=== PATIENT | female | born 1935 | race Caucasian/White ===

== ENCOUNTER → 2018-04-09 | Outpatient (CLI) | payer MEDICARE, OTHER ==
[2016-01-10 21:04] VITALS: BP 202/99
[~2018-04-09] MED LIST: CHOL100013 PO; IOHEXOL 240 MG/ML 50ML VIAL. PO ONE; IOHEXOL 300 MG/ML 75 ML VIAL. IV ONE; MULT1TAB52 PO; NIAC50TA3 PO; ZINC30CA PO
[2018-04-09 15:33] LABS: BASO # 0.1 x10^3/uL (0.0-0.2); BASO % 1 % (0-3); EOS % 0 % (0-3); LYMPH # 0.9 x10^3/uL (1.0-4.8); LYMPH % 6 % (24-48); MEAN CORPUSCULAR HEMOGLOBIN 30 pg (25-35); MEAN CORPUSCULAR HGB CONC 33 g/dL (31-37); MEAN CORPUSCULAR VOLUME 91 fL (79-100); MONO % 13 % (0-9); NEUT % 80 % (31-73); PLATELET COUNT 226 x10^3/uL (140-400); RED BLOOD COUNT 3.64 x10^6/uL (3.50-5.40); RED CELL DISTRIBUTION WIDTH 20.4 % (11.5-14.5)
[2018-04-09 15:56] LABS: ALBUMIN 3.5 g/dL (3.4-5.0); ALBUMIN/GLOBULIN RATIO 0.9 (1.0-1.7); CALCIUM 9.4 mg/dL (8.5-10.1); POTASSIUM 3.7 mmol/L (3.5-5.1); TOTAL BILIRUBIN 0.6 mg/dL (0.2-1.0); TOTAL PROTEIN 7.5 g/dL (6.4-8.2)
--- NOTE | 2018-04-09 16:44 | RAD ---
Examination: CT angiography chest HISTORY: History of dyspnea, breast mass COMPARISON: None available TECHNIQUE: Axial CT and radiographic images of chest were performed with IV contrast. Coronal and sagittal 3-D MIP reformats are performed Exposure: One or more of the following individualized dose reduction techniques were utilized for this examination: 1. Automated exposure control 2. Adjustment of the mA and/or kV according to patient size 3. Use of iterative reconstruction technique FINDINGS: The central airways are patent. Moderate cardiomegaly. Coronary artery calcifications identified. There is no evidence of filling defect identified in the main pulmonary arterial trunk and right and left main pulmonary arteries and the visualized lobar, segmental branches of the pulmonary arteries. There is a round 5 mm nodule identified in the right middle lobe of the lung. There is a pleural-based nodule identified in the left upper lobe of the lung laterally measuring 7.5 mm. No evidence of pleural effusion or pneumothorax. Few prominent left axillary lymph nodes identified with the largest measuring 1.7 cm. There is a 1.7 cm nodule identified in the right adrenal gland region measuring 6 Hounsfield units. The visualized liver, spleen, left adrenal grossly appears unremarkable. There is a large mass identified in the left breast region measuring 4.8 x 4.3 cm. There are multiple enlarged lymph nodes identified in the retrocrural, periaortic lymph nodes about the descending thoracic aorta and in the retroperitoneum. Moderate degenerative changes thoracic spine. IMPRESSION: 1. No evidence of pulmonary embolism. 2. Large mass identified in the left breast region. Malignancy is not excluded. Multiple enlarged left axillary, retrocrural, periaortic and retroperitoneal lymph nodes identified, suspicious for metastasis. 3. Small hypodense nodule identified in the right adrenal gland is difficult to characterize. 4. Small 5 mm nodule identified in the right middle lobe of the lung and 7.5 mm nodule identified in the left upper lobe of the lung abutting the pleura. Follow-up per Fleischner Society guidelines. Follow-up CT in 3-6 months. Electronically signed by: Sukh Thakkar MD (04/09/2018 4:40 PM) [id number]
--- NOTE | 2018-04-09 16:55 | RAD ---
CT ABD PELV W/ORAL IV CONTRAST Indication: ABDOMINAL PAIN, PALPABLE ABDOMINAL MASS IN SUPRAPUBIC AREA, BREAST MASS, ORAL AND 60MLS OMNI 300 IV CONTRAST Exposure: One or more of the following individualized dose reduction techniques were utilized for this examination: 1. Automated exposure control 2. Adjustment of the mA and/or kV according to patient size 3. Use of iterative reconstruction technique. Comparison: None are available. Contrast: Intravenous contrast was given. Oral contrast was given. FINDINGS: Lower thorax: Noncalcified nodule right lung base measures 7 mm. Coronary artery calcifications. Liver: Unremarkable Spleen: Unremarkable Pancreas: Pancreatic tail appears small. No acute peripancreatic inflammatory change. Adrenals: Small right adrenal gland mass measures 15 mm, and 26 Hounsfield units. Kidneys: Hypodense lesion posterior right kidney measures 8 mm and 10 Hounsfield units, likely a small cyst. Gallbladder: No calcified stone Lymph nodes: Enlarged para-aortic lymph nodes in the lower chest. Moderate to severe soft tissue nodule in the left upper quadrant may represent an accessory splenule, although a 3 cm lymph node is difficult to exclude. Enlarged confluent lymph nodes in the retroperitoneum around the aorta and inferior vena cava. Enlargement of bilateral iliac lymph nodes, greater on the right, largest node measures 2.5 cm. Vessels: * Aorta: Calcified, ectatic and tortuous. No aneurysmal dilatation. * Mesenteric: Appear patent * Portal venous: Appear patent GI tract: No bowel obstruction. No evidence of acute colitis. Appendix is not clearly visualized. Reproductive organs: Large pelvic mass, appears to arise from the uterus. Central low density may represent a dilated endometrial canal, versus central necrosis. Altogether, this measures 16.5 cm AP by 11.5 cm wide by 14.3 cm height. There may also be involvement of the adnexa, particularly on the right. Urinary bladder: Not adequately distended for evaluation. Peritoneum: No evidence of pneumoperitoneum. No free fluid. Abdominal wall: Fat-containing anterior abdominal wall hernia. This is just below the umbilicus. There is some irregular density within this fat which may represent inflammation or fibrosis. No bowel herniation. Spine: Degenerative spondylosis. Superior endplate compression of the L2 vertebrae may represent a chronic fracture. Osteolytic lesion of T12 likely a hemangioma. Bones: Degenerative changes of both hips. Small calcified lesion of the greater trochanter of the right femur probably represents some calcification or an enchondroma. The appearance is less typical for osteoblastic metastatic lesion. IMPRESSION: 1. Moderate to severe aortocaval lymph node enlargement in the lower chest and abdomen. Moderate iliac lymph node enlargement. Findings are most concerning for neoplastic or metastatic etiology. 2. Large pelvic mass, likely arising from the uterus with possible adnexal involvement. Malignant etiology is also considered. 3. Fat-containing anterior abdominal wall hernia. Soft tissue density within the fat, likely fibrosis or inflammation. 4. Small 13 mm adrenal gland mass, indeterminate, but may represent an adenoma. 5. Noncalcified nodule in the right lung base. This may represent a metastatic nodule. 6. Irregular calcified lesion in the greater trochanter right femur is likely calcification or small enchondroma. Appearance not typical for osteoblastic metastatic lesion. Electronically signed by: Jackson Thompson MD (04/09/2018 4:51 PM) [facility]
[2018-04-09 18:03] LABS: % BANDS 2 % (0-9); % BASOS 1 % (0-3); % LYMPHS 7 % (24-48); % MONOS 14 % (0-10); % SEGS 76 % (35-66); NUCLEATED RBC 1
[2018-04-09 18:05] LABS: PLT ESTIMATE ADEQUATE (ADEQUATE)
[2018-04-09 18:06] LABS: ANISOCYTOSIS MOD
[2018-04-09 18:07] LABS: MICROCYTOSIS PRESENT; POLYCHROMASIA PRESENT
[2018-04-09 18:09] LABS: OVALOCYTES FEW
[2018-04-09 18:10] LABS: TEAR DROP CELLS OCC
== END | disposition home or self-care (01) ==
LOC: LAB 15:01
PROVIDERS: ATTEND Family Medicine
DX: E27.8 Other specified disorders of adrenal gland (principal); I10 Essential (primary) hypertension; R59.1 Generalized enlarged lymph nodes; R91.1 Solitary pulmonary nodule; Z88.0 Allergy status to penicillin
CPT/HCPCS: 36415; 71275; 74177; 80053; 82150; 83690; 83880; 85007; 85025; Q9966; Q9967